=== PATIENT | male | born 2000 | race Caucasian/White ===

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

== ENCOUNTER 2020-09-27 15:13 | Emergency (ER) | payer BC ==
[2020-09-27] MEDS ORDERED: ALPRAZolam 1 MG Tab PO ONE (15:28)
--- NOTE | 2020-09-27 15:32 | EDM.PDOC ---
ED HPI GENERAL MEDICAL PROBLEM - General Chief Complaint: General Stated Complaint: anxiety Time Seen by Provider: 09/27/20 15:25 Source of Information: Reports: Patient - History of Present Illness INITIAL COMMENTS - FREE TEXT/NARRATIVE: Jayjay is a 19 y/o male who presents to the ER with complaints of a panic attack. He has long-standing anxiety and take Buspar BID prn for his sx. He took a Buspar this AM, but it has not helped. This AM he woke up and felt his eyes "going weird" and his hands to start getting getting tight and he could not move. He felt like he was going to pass out. He has had these sx before but has not had to come to the ER in a long-time. He reports that the feeling just came on and nothing in particular caused it today. He usually sees Wanda at the [facility] here in town, but she is out of town. - Related Data Allergies Allergy/AdvReac Type Severity Reaction Status Date / Time No Known Allergies Allergy Verified 09/05/17 07:54 Home Meds: Home Meds Acetaminophen [Tylenol] 2 tab PO Q6HR PRN 11/05/15 [History] Ibuprofen 2 tab PO Q6HR PRN 11/05/15 [History] ALPRAZolam [Xanax] 1 mg PO DAILY PRN 5 Days #5 tablet 09/27/20 [Rx] Escitalopram Oxalate [Lexapro] 20 mg PO DAILY 09/27/20 [History] busPIRone [Buspar] 15 mg PO BID PRN 09/27/20 [History] Past Medical History HEENT History: Reports: Impaired Vision, Other (See Below) Other HEENT History: Patient wears glasses Psychiatric History: Reports: Anxiety, Depression - Past Surgical History HEENT Surgical History: Reports: Adenoidectomy, Oral Surgery, Tonsillectomy, Other (See Below) Other HEENT Surgeries/Procedures: Tonsillectomy and adenoidectomy at age 6. [place] teeth extraction 4 in February 2016. GI Surgical History: Reports: Hernia, Inguinal, Other (See Below) Other GI Surgeries/Procedures: Inguinal hernia repair including correction of nondistended testisside unknown at age 1 Male Surgical History: Reports: Circumcision, Other (See Below) Other Male Surgeries/Procedures: Circumcision as an . Correction of undescended testis at age 1 as above. Social & Family History - Caffeine Use Caffeine Use: Reports: Coffee, Soda, Tea - Living Situation & Occupation Living situation: Reports: Single, with Family (2 Siblings, mother, and stepfather) Occupation: Student (About ready to complete the 11th grade) ED ROS GENERAL - Review of Systems Review Of Systems: See Below Constitutional: Reports: No Symptoms HEENT: Reports: No Symptoms Respiratory: Reports: No Symptoms Cardiovascular: Reports: No Symptoms Endocrine: Reports: No Symptoms GI/Abdominal: Reports: No Symptoms : Reports: No Symptoms Musculoskeletal: Reports: No Symptoms Skin: Reports: No Symptoms Neurological: Reports: No Symptoms Psychiatric: Reports: Anxiety Hematologic/Lymphatic: Reports: No Symptoms Immunologic: Reports: No Symptoms ED EXAM, GENERAL - Physical Exam Exam: See Below General Appearance: Alert, WD/WN, No Apparent Distress (young adult male) Eye Exam: Bilateral Eye: PERRL Ears: Hearing Grossly Normal Nose: Normal Inspection, Normal Mucosa Throat/Mouth: Normal Inspection, Normal Lips, Normal Voice Head: Atraumatic, Normocephalic Neck: Normal Inspection Respiratory/Chest: No Respiratory Distress, Lungs Clear, Chest Non-Tender Cardiovascular: Normal Peripheral Pulses, Regular Rate, Rhythm GI/Abdominal: Normal Bowel Sounds, Soft (Male) Exam: Deferred Rectal (Males) Exam: Deferred Back Exam: Normal Inspection Extremities: Normal Inspection, Normal Range of Motion, No Pedal Edema, Normal Capillary Refill Neurological: Alert, Oriented, CN II-XII Intact Psychiatric: Anxious Skin Exam: Warm, Dry, Intact, Normal Color Lymphatic: No Adenopathy Course - Vital Signs Text/Narrative:: 1525 The patient was seen by the CARTRIDGE LOADING OPERATOR. He was given Xanax 1mg po in the ER. 1620 Patient reports he is feeling better and much more "normal" now. Will send him home with a few benzodiazepines for prn use and then he can follow with his PCP/Mental Health Provider. He was given written instructions and left the ER in stable condition. Last Recorded V/S: Last Vital Signs Temp 36.8 C 09/27/20 15:18 Pulse 96 09/27/20 15:18 Resp 20 09/27/20 15:18 BP 153/85 H 09/27/20 15:18 Pulse Ox 100 09/27/20 15:18 - Orders/Labs/Meds Meds: Medications Discontinued Medications Generic Name Dose Route Start Last Admin Trade Name Freq PRN Reason Stop Dose Admin Alprazolam 1 mg 09/27/20 15:28 09/27/20 15:52 Alprazolam 1 Mg Tab PO 09/27/20 15:29 1 mg ONETIME ONE Administration Departure - Departure Time of Disposition: 16:19 Disposition: Home, Self-Care 01 Condition: Good Clinical Impression: Panic attack, Generalized anxiety disorder with panic attacks - Discharge Information *PRESCRIPTION DRUG MONITORING PROGRAM REVIEWED*: Yes *COPY OF PRESCRIPTION DRUG MONITORING REPORT IN PATIENT YASMEEN: Yes Prescriptions: ALPRAZolam [Xanax] 1 mg PO DAILY PRN 5 Days #5 tablet PRN Reason: Anxiety Instructions: Panic Attack, Generalized Anxiety Disorder, Adult Referrals: Wanda Nazario NP [Primary Care Provider] - Forms: ED Department Discharge Sepsis Event Note (ED) - Evaluation Sepsis Screening Result: No Definite Risk - Focused Exam Vital Signs: Vital Signs Temp Pulse Resp BP Pulse Ox 09/27/20 15:18 36.8 C 96 20 153/85 H 100 - Assessment/Plan Assessment:: 1)Panic Attack 2)Generalized Anxiety Disorder with Panic Attacks Plan: -Take you Buspar 15mg oral 2x daily for the next few days, rather than as needed to see if this improves your symptoms -Xanax 1 mg oral daily as needed for severe anxiety or panic symptoms #5(Rx) Please discuss further refills with your PCP. -Continue your Lexapro daily as prescribed -Get in to see you PCP or make a mental health appointment in the very near future -Return as needed to the ER
[2020-09-27 17:12] VITALS: BP 136/85; PULSE 87
== END 2020-09-27 16:40 | disposition home or self-care (01) ==
LOC: LL.ED 15:13
DX: F41.0 Panic disorder [episodic paroxysmal anxiety] (principal)
CPT/HCPCS: 99283; A9270-GY